=== PATIENT | female | born 1975 | race Caucasian/White ===

== ENCOUNTER → 2016-10-04 | Day surgery (SDC) | payer MEDICARE, MEDICAID ==
[~2016-10-04] VITALS: Ht 154.9 cm; Wt 72.1 kg
[~2016-10-04] MED LIST: CARB20TAXR PO; CIPRODEX OTIC SUSP 7.5ML As Ordered ONE; IBUP600T26 PO; KEPP1000 PO; LAMI200T3 PO; LIDOCAINE 2% INJ 100 MG/5 ML SDV (FOR ANES.) As Ordered ONE; LR 1,000 ML IV SCH; MEDR1VL IM; ONDANSETRON 4MG/2ML VIAL (J2405) As Ordered ONE; PROPOFOL 200 MG/20 ML VIAL As Ordered ONE; VITA100054 PO; [UNRECOGNIZED DRUG - CODE] FT
[2016-10-04 13:44] LABS: CONTROL LINE UCG INT CTR LINE PRESENT
[2016-10-04 16:50] VITALS: BP 140/76
== END | disposition home or self-care (01) ==
LOC: M SDC 11:45
PROVIDERS: ATTEND Otolaryngology
DX: H65.21 Chronic serous otitis media, right ear (principal); H90.11 Conductive hearing loss, unilateral, right ear, with unrestricted hearing on the contralateral side; F79 Unspecified intellectual disabilities; G40.909 Epilepsy, unspecified, not intractable, without status epilepticus; G43.909 Migraine, unspecified, not intractable, without status migrainosus; Z79.899 Other long term (current) drug therapy
CPT/HCPCS: 69436; 84703; J2405

== ENCOUNTER → 2016-10-18 | Outpatient (REF) | payer MEDICARE, MEDICAID ==
[~2016-10-18] MED LIST changes: -CIPRODEX OTIC SUSP 7.5ML As Ordered ONE; -LIDOCAINE 2% INJ 100 MG/5 ML SDV (FOR ANES.) As Ordered ONE; -LR 1,000 ML IV SCH; -ONDANSETRON 4MG/2ML VIAL (J2405) As Ordered ONE; -PROPOFOL 200 MG/20 ML VIAL As Ordered ONE
== END ==
LOC: M LAB REF 13:03
PROVIDERS: ATTEND Physician Assistant Medical
DX: H72.01 Central perforation of tympanic membrane, right ear (principal)

== ENCOUNTER → 2017-03-19 | Outpatient (CLI) | payer MEDICARE, MEDICAID ==
[~2017-03-19] MED LIST changes: +IBUP-1022 PO; -IBUP600T26 PO; -KEPP1000 PO; +KEPP10002 PO; +LAMI1TAB9 PO; -LAMI200T3 PO
[2017-03-19 13:25] LABS: CARBAMAZEPINE (TEGRETOL) LEVEL 8.2 UG/ML (4.0-10.0)
[2017-03-19 13:30] LABS: BASO % 0.5 % (0.0-1.0); EOS # 0.2 K/mm3 (0.0-0.50); EOS % 3.1 % (0.0-3.0); LARGE UNSTAINED CELL # 0.1 K/mm3 (0.0-0.4); LARGE UNSTAINED CELL % 1.8 % (0.0-4.0); LYMPH # 2.4 K/mm3 (1.5-4.5); LYMPH % 33.6 % (24.0-44.0); MEAN CORPUSCULAR HEMOGLOBIN 28.3 pg (27.0-33.0); MEAN CORPUSCULAR HGB CONC 32.7 g/dl (32.0-36.5); MEAN CORPUSCULAR VOLUME 86.5 fl (80.0-96.0); MONO # 0.4 K/mm3 (0.0-0.8); MONO % 5.8 % (0.0-5.0); NEUTROPHILS # 3.8 K/mm3 (1.8-7.7); NEUTROPHILS % 55.1 % (36.0-66.0); PLATELET COUNT, AUTOMATED 321 k/mm3 (150-450); RED CELL DISTRIBUTION WIDTH 12.4 % (11.5-14.5); WHITE BLOOD COUNT 6.8 K/mm3 (4.0-10.0)
== END ==
LOC: M WUC 09:09
PROVIDERS: ATTEND Physician Assistant Medical
DX: Z51.81 Encounter for therapeutic drug level monitoring (principal); Z79.899 Other long term (current) drug therapy; G40.909 Epilepsy, unspecified, not intractable, without status epilepticus

== ENCOUNTER 2017-03-23 14:46 | Emergency (ER) | payer MEDICARE, MEDICAID ==
[2017-03-23 17:28] VITALS: BP 163/82
== END 2017-03-23 17:30 | disposition home or self-care (01) ==
LOC: EDBD 14:46 → M ED 14:46
DX: R56.9 Unspecified convulsions (principal); Z79.899 Other long term (current) drug therapy; Z86.69 Personal history of other diseases of the nervous system and sense organs

== ENCOUNTER → 2017-12-18 | Outpatient (CLI) | payer MEDICARE, MEDICAID | LOC: M WHC 07:51 | DX: Z12.31 Encounter for screening mammogram for malignant neoplasm of breast (principal); Z79.3 Long term (current) use of hormonal contraceptives | CPT/HCPCS: 77067 ==

== ENCOUNTER → 2018-02-11 | Outpatient (CLI) | payer MEDICARE, MEDICAID ==
[2018-02-11 08:56] LABS: HEMATOCRIT 38.8 % (36.0-47.0); HEMOGLOBIN 12.8 g/dl (12.0-15.5); MEAN CORPUSCULAR HEMOGLOBIN 27.1 pg (27.0-33.0); MEAN CORPUSCULAR VOLUME 82.2 fl (80.0-96.0); PLATELET COUNT, AUTOMATED 295 10^3/uL (150-450); RED BLOOD COUNT 4.72 10^6/uL (4.00-5.40); RED CELL DISTRIBUTION WIDTH 12.7 % (11.5-14.5); WHITE BLOOD COUNT 6.4 10^3/uL (4.0-10.0)
[2018-02-11 09:26] LABS: ALBUMIN 3.4 GM/DL (3.2-5.2); ALBUMIN/GLOBULIN RATIO 0.85 (1.00-1.93); ALKALINE PHOSPHATASE 133 U/L (45-117); ALT/SGPT 19 U/L (12-78); ANION GAP 9 MEQ/L (8-16); AST/SGOT 13 U/L (7-37); BILIRUBIN,TOTAL 0.3 MG/DL (0.2-1.0); BLOOD UREA NITROGEN 8 MG/DL (7-18); CALCIUM LEVEL 8.5 MG/DL (8.5-10.1); CARBON DIOXIDE LEVEL 26 MEQ/L (21-32); CHLORIDE LEVEL 107 MEQ/L (98-107); CHOLESTEROL LEVEL 200 MG/DL (<200); CHOLESTEROL RISK RATIO 3.389 (<5); CREATININE FOR GFR 0.87 MG/DL (0.55-1.30); GLOMERULAR FILTRATION RATE > 60.0 (>58); GLUCOSE, FASTING 86 MG/DL (70-100); HDL CHOLESTEROL 59 MG/DL (>40); LDL CHOLESTEROL 115.2 MG/DL (<100); NON-HDL-C 141 MG/DL; SODIUM LEVEL 142 MEQ/L (136-145); TOTAL PROTEIN 7.4 GM/DL (6.4-8.2); TRIGLYCERIDES LEVEL 129 MG/DL (<150)
[2018-02-11 10:16] LABS: TOTAL 25(OH) VITAMIN D 48.6 NG/ML (30.0-100.0)
== END ==
LOC: M WUC 08:22
DX: E78.5 Hyperlipidemia, unspecified (principal)
CPT/HCPCS: 84443

== ENCOUNTER → 2018-04-08 | Outpatient (CLI) | payer MEDICARE, MEDICAID ==
[2018-04-08 09:34] LABS: CARBAMAZEPINE (TEGRETOL) LEVEL 10.4 UG/ML (4.0-10.0)
== END ==
LOC: M WUC 08:04
DX: R56.9 Unspecified convulsions (principal)
CPT/HCPCS: 80156

== ENCOUNTER → 2019-05-18 | Outpatient (CLI) | payer MEDICARE, MEDICAID ==
--- NOTE | 2019-05-18 10:10 | REPMRS ---
Patient History The patient states she had a clinical breast exam in 03/2019. Patient is nulliparous. No known family history of cancer. Taking hormonal contraceptives for 24 years. 3D TOMOSYNTHESIS WAS PERFORMED. [facility] lifetime risk for breast cancer is 10.7%. Digital Woman Screen Mammo: May 18, 2019 - Exam #: [id number] Bilateral CC and MLO view(s) were taken. Technologist: Anette Beltre, Technologist Prior study comparison: December 18, 2017, digital woman screen mammo performed at [facility]. October 18, 2015, digital woman screen mammo performed at [facility] 1,2,3 [place] [facility]. FINDINGS: The breast tissue is heterogeneously dense. This may lower the sensitivity of mammography. There has been no change in the appearance of the mammogram from the prior studies. There is a moderate amount of residual fibroglandular tissue which is fairly symmetric. There is no interval development of dominant mass, areas of architectural distortion, or clustered microcalcification typical of malignancy. Assessment: BI-RADS/ACR category 1 mammogram. Negative Mammogram. Recommendation Routine screening mammogram in 1 year (for women over age 40). This mammogram was interpreted with the aid of an FDA-approved computer-aided dectection system. Electronically Signed By: Luis Alberto Friedman MD 05/18/19 [id number]
== END ==
LOC: M WHC 08:23
PROVIDERS: ATTEND Nurse Practitioner Family
DX: Z12.31 Encounter for screening mammogram for malignant neoplasm of breast (principal)

== ENCOUNTER → 2019-09-22 | Outpatient (CLI) | payer MEDICARE, MEDICAID ==
[2019-09-22 10:23] LABS: BASO # 0.1 10^3/uL (0.0-0.2); BASO % 0.8 % (0.0-1.0); EOS # 0.2 10^3/uL (0.0-0.5); EOS % 2.9 % (0.0-3.0); HEMATOCRIT 41.9 % (36.0-47.0); HEMOGLOBIN 13.4 g/dl (12.0-15.5); LYMPH # 2.4 10^3/uL (1.5-5.0); LYMPH % 36.7 % (24.0-44.0); MEAN CORPUSCULAR HEMOGLOBIN 27.9 pg (27.0-33.0); MEAN CORPUSCULAR VOLUME 87.1 fl (80.0-96.0); MONO # 0.4 10^3/uL (0.0-0.8); MONO % 5.5 % (0.0-5.0); NEUTROPHILS # 3.5 10^3/uL (1.5-8.5); NEUTROPHILS % 53.6 % (36.0-66.0); PLATELET COUNT, AUTOMATED 315 10^3/uL (150-450); RED BLOOD COUNT 4.81 10^6/uL (4.00-5.40); WHITE BLOOD COUNT 6.5 10^3/uL (4.0-10.0)
[2019-09-22 10:36] LABS: CARBAMAZEPINE (TEGRETOL) LEVEL 10.6 UG/ML (4.0-10.0)
[2019-09-24 14:10] LABS: LAMOTRIGINE (LAMICTAL) 6.3 ug/mL (2.0-20.0); LEVETIRACETAM (KEPPRA) 41.5 ug/mL (10.0-40.0)
== END ==
LOC: M WUC 08:22
PROVIDERS: ATTEND Physician Assistant Medical
DX: Z79.899 Other long term (current) drug therapy (principal); G40.909 Epilepsy, unspecified, not intractable, without status epilepticus

== ENCOUNTER → 2020-01-04 | Outpatient (REF) | payer MEDICARE, MEDICAID | LOC: M LAB REF 14:11 | PROVIDERS: ATTEND Physician Assistant Medical | DX: H92.11 Otorrhea, right ear (principal) ==

== ENCOUNTER → 2020-08-02 | Outpatient (CLI) | payer MEDICARE, MEDICAID ==
--- NOTE | 2020-08-02 09:00 | REPVR ---
PROCEDURE INFORMATION: Exam: CT Temporal Bones Without Contrast. Exam date and time: 08/02/2020 8:44 AM Age: 45 years old Clinical indication: Pain; Other: Ear; Additional info: Otorrhea of right ear TECHNIQUE: Imaging protocol: Computed tomography images of the temporal bones without contrast. Radiation optimization: All CT scans at this facility use at least one of these dose optimization techniques: automated exposure control; mA and/or kV adjustment per patient size (includes targeted exams where dose is matched to clinical indication); or iterative reconstruction. COMPARISON: No relevant prior studies available. FINDINGS: There are severe destructive changes of the bone of the right external auditory canal. Soft tissue density occludes the right external auditory canal. Soft tissue density completely fills the right middle ear, aditus ad antrum, and all of the right mastoid air cells. There is a permeative pattern throughout the right temporal bone. Findings are consistent with extensive osteomyelitis. Many of these findings are likely chronic. IMPRESSION: There are severe destructive changes of the bone of the right external auditory canal. Soft tissue density occludes the right external auditory canal. Soft tissue density completely fills the right middle ear, aditus ad antrum, and all of the right mastoid air cells. There is a permeative pattern throughout the right temporal bone. Findings are consistent with extensive osteomyelitis. Many of these findings are likely chronic. Direct comparison to any prior studies is recommended. ENT consultation is recommended. Follow-up postcontrast MRI of the brain is recommended to evaluate for intracranial extension of infection. Electronically signed by: Juliocesar Marie On 08/02/2020 09:01:21 AM
== END ==
LOC: M RAD 08:29
PROVIDERS: ATTEND Physician Assistant Medical
DX: H92.11 Otorrhea, right ear (principal)

== ENCOUNTER → 2020-11-29 | Outpatient (REF) | payer MEDICARE, MEDICAID | LOC: M WUC 09:24 | PROVIDERS: ATTEND Physician Assistant Medical | DX: R56.9 Unspecified convulsions (principal) ==

== ENCOUNTER → 2021-05-29 | Outpatient (CLI) | payer MEDICARE, MEDICAID | LOC: M WUC 08:02 | PROVIDERS: ATTEND Physician Assistant Medical | DX: Z51.81 Encounter for therapeutic drug level monitoring (principal) ==

== ENCOUNTER 2021-09-13 10:41 | Inpatient (IN) | payer MEDICARE, MEDICAID ==
[~2021-09-13] VITALS: Ht 154.9 cm; Wt 99.0 kg
[~2021-09-13 10:41] MED LIST changes: +ATOR1TAB19 PO; +CARB400T4 PO; +MELO15TA28 PO; +OXYC-517 PO; +TRAM50TA2 PO; +VITA100093 PO
[2021-09-13] MEDS ORDERED: oxyCODONE 5MG TAB PO PRN (11:00)
[2021-09-13] MEDS ORDERED: MIRALAX *UNIT DOSE* 17GM PACKET PO PRN (11:00)
[2021-09-13] MEDS ORDERED: ONDANSETRON 4 MG ORAL DISINTEGRATING TAB SL PRN (11:00)
[2021-09-13] MEDS ORDERED: BISACODYL 10 MG SUPP PR PRN (11:00)
[2021-09-13] MEDS ORDERED: ASPI-551 PO (13:49)
[2021-09-13] MEDS ORDERED: SENN-52 PO (13:49)
[2021-09-13] MEDS ORDERED: ACET1TAB55 PO (13:49)
[2021-09-13] MEDS ORDERED: MIRA1POW3 PO (13:49)
[2021-09-13] MEDS ORDERED: HOME MED LIST COMPLETE! XX SCH (15:20)
[2021-09-13 16:01] VITALS: BP 144/77
[2021-09-13] MEDS: ACETAMINOPHEN 500 MG TAB PO SCH ×2 (16:21→21:22)
[2021-09-13] MEDS: METOPROLOL TART 25 MG TABLET PO SCH ×2 (17:19→21:21)
[2021-09-13] MEDS: SUCRALFATE 1 GM TAB PO SCH ×2 (17:19→21:22)
[2021-09-13 20:00] VITALS: BP 131/74
[2021-09-13] MEDS: SENNA 8.6 MG TAB (SENOKOT) PO SCH (21:00)
[2021-09-13] MEDS: DOCUSATE SODIUM 100MG CAPSULE PO SCH (21:00)
[2021-09-13] MEDS: PANTOPRAZOLE 40MG TAB (PROTONIX) PO SCH (21:21)
[2021-09-13] MEDS: ASPIRIN 81MG ENTERIC TABLET PO SCH (21:21)
[2021-09-13] MEDS: levETIRAcetam 250MG TABLET (KEPPRA) PO SCH (21:21)
[2021-09-13] MEDS: lamoTRIgine 100MG TAB PO SCH (21:21)
[2021-09-13] MEDS: carBAMazepine XR 200 MG TAB PO SCH (21:22)
[2021-09-14 05:58] LABS: BASO # 0.1 10^3/uL (0.0-0.2); BASO % 0.7 % (0.0-1.0); EOS # 0.5 10^3/uL (0.0-0.5); EOS % 5.8 % (0.0-3.0); HEMATOCRIT 24.5 % (36.0-47.0); HEMOGLOBIN 7.8 g/dl (12.0-15.5); LYMPH % 35.3 % (24.0-44.0); MEAN CORPUSCULAR HEMOGLOBIN 27.8 pg (27.0-33.0); MEAN CORPUSCULAR HGB CONC 31.8 g/dl (32.0-36.5); MEAN CORPUSCULAR VOLUME 87.2 fl (80.0-96.0); MONO # 0.7 10^3/uL (0.0-0.8); MONO % 8.5 % (2.0-8.0); NEUTROPHILS # 4.1 10^3/uL (1.5-8.5); PLATELET COUNT, AUTOMATED 247 10^3/uL (150-450); RED BLOOD COUNT 2.81 10^6/uL (4.00-5.40); WHITE BLOOD COUNT 8.4 10^3/uL (4.0-10.0)
[2021-09-14 06:00] VITALS: BP 138/76
[2021-09-14] MEDS: METOPROLOL TART 25 MG TABLET PO SCH ×3 (06:24→21:08)
[2021-09-14 06:31] LABS: ALBUMIN 2.6 GM/DL (3.2-5.2); ALT/SGPT 16 U/L (12-78); BILIRUBIN,TOTAL 0.2 MG/DL (0.2-1.0); BLOOD UREA NITROGEN 22 MG/DL (7-18); CALCIUM LEVEL 8.1 MG/DL (8.5-10.1); CARBON DIOXIDE LEVEL 29 MEQ/L (21-32); CHLORIDE LEVEL 108 MEQ/L (98-107); GLOMERULAR FILTRATION RATE > 60.0 (>58); GLUCOSE, FASTING 91 MG/DL (70-100); POTASSIUM SERUM 3.8 MEQ/L (3.5-5.1); SODIUM LEVEL 142 MEQ/L (136-145)
[2021-09-14] MEDS: ASPIRIN 81MG ENTERIC TABLET PO SCH ×2 (08:29→21:08)
[2021-09-14] MEDS: SUCRALFATE 1 GM TAB PO SCH ×4 (08:29→21:08)
[2021-09-14] MEDS: levETIRAcetam 250MG TABLET (KEPPRA) PO SCH ×2 (08:29→21:07)
[2021-09-14] MEDS: FERROUS GLUCONATE 324 MG TAB PO SCH (08:29)
[2021-09-14] MEDS: lamoTRIgine 100MG TAB PO SCH ×2 (08:29→21:08)
[2021-09-14] MEDS: ACETAMINOPHEN 500 MG TAB PO SCH ×3 (08:29→21:07)
[2021-09-14] MEDS: PANTOPRAZOLE 40MG TAB (PROTONIX) PO SCH ×2 (08:29→21:08)
[2021-09-14] MEDS: carBAMazepine XR 200 MG TAB PO SCH ×2 (08:29→21:09)
[2021-09-14] MEDS: VITAMIN D 1,000 INTERNATIONAL UNITS TABLET PO SCH (08:30)
[2021-09-14] MEDS: DOCUSATE SODIUM 100MG CAPSULE PO SCH ×2 (08:30→21:08)
[2021-09-14] MEDS ORDERED: ATORVASTATIN 10 MG TAB PO SCH (09:00)
[2021-09-14 13:31] VITALS: BP 134/72
[2021-09-14 19:35] VITALS: BP 122/65
[2021-09-14] MEDS: SENNA 8.6 MG TAB (SENOKOT) PO SCH (21:08)
[2021-09-14] MEDS: ATORVASTATIN 10 MG TAB PO SCH (21:08)
[2021-09-15 05:46] VITALS: BP 115/61
[2021-09-15] MEDS: METOPROLOL TART 25 MG TABLET PO SCH ×3 (05:54→21:14)
[2021-09-15] MEDS: PANTOPRAZOLE 40MG TAB (PROTONIX) PO SCH ×2 (08:13→21:14)
[2021-09-15] MEDS: levETIRAcetam 250MG TABLET (KEPPRA) PO SCH ×2 (08:13→21:13)
[2021-09-15] MEDS: DOCUSATE SODIUM 100MG CAPSULE PO SCH ×2 (08:13→21:13)
[2021-09-15] MEDS: FERROUS GLUCONATE 324 MG TAB PO SCH (08:13)
[2021-09-15] MEDS: VITAMIN D 1,000 INTERNATIONAL UNITS TABLET PO SCH (08:13)
[2021-09-15] MEDS: lamoTRIgine 100MG TAB PO SCH ×2 (08:14→21:13)
[2021-09-15] MEDS: carBAMazepine XR 200 MG TAB PO SCH ×2 (08:14→21:13)
[2021-09-15] MEDS: ASPIRIN 81MG ENTERIC TABLET PO SCH ×2 (08:14→21:14)
[2021-09-15] MEDS: SUCRALFATE 1 GM TAB PO SCH ×4 (08:14→21:14)
[2021-09-15 08:15] LABS: BASO # 0.1 10^3/uL (0.0-0.2); BASO % 0.6 % (0.0-1.0); EOS # 0.5 10^3/uL (0.0-0.5); EOS % 5.9 % (0.0-3.0); HEMATOCRIT 25.9 % (36.0-47.0); HEMOGLOBIN 8.3 g/dl (12.0-15.5); LYMPH # 2.6 10^3/uL (1.5-5.0); LYMPH % 31.8 % (24.0-44.0); MEAN CORPUSCULAR HEMOGLOBIN 27.5 pg (27.0-33.0); MEAN CORPUSCULAR VOLUME 85.8 fl (80.0-96.0); MONO # 0.6 10^3/uL (0.0-0.8); MONO % 7.3 % (2.0-8.0); NEUTROPHILS # 4.4 10^3/uL (1.5-8.5); NEUTROPHILS % 53.4 % (36.0-66.0); PLATELET COUNT, AUTOMATED 297 10^3/uL (150-450); RED BLOOD COUNT 3.02 10^6/uL (4.00-5.40); WHITE BLOOD COUNT 8.3 10^3/uL (4.0-10.0)
[2021-09-15] MEDS: ACETAMINOPHEN 500 MG TAB PO SCH ×3 (08:15→21:14)
[2021-09-15 14:00] VITALS: BP 142/73
[2021-09-15 20:21] VITALS: BP 130/64
[2021-09-15] MEDS: SENNA 8.6 MG TAB (SENOKOT) PO SCH (21:14)
[2021-09-15] MEDS: ATORVASTATIN 10 MG TAB PO SCH (21:14)
[2021-09-16 06:00] VITALS: BP 130/72
[2021-09-16] MEDS: METOPROLOL TART 25 MG TABLET PO SCH ×3 (06:04→21:04)
[2021-09-16] MEDS: levETIRAcetam 250MG TABLET (KEPPRA) PO SCH ×2 (06:05→21:04)
[2021-09-16] MEDS: lamoTRIgine 100MG TAB PO SCH ×2 (06:06→21:04)
[2021-09-16] MEDS: carBAMazepine XR 200 MG TAB PO SCH ×2 (06:06→21:05)
[2021-09-16] MEDS: VITAMIN D 1,000 INTERNATIONAL UNITS TABLET PO SCH (09:11)
[2021-09-16] MEDS: ASPIRIN 81MG ENTERIC TABLET PO SCH ×2 (09:11→21:04)
[2021-09-16] MEDS: FERROUS GLUCONATE 324 MG TAB PO SCH (09:11)
[2021-09-16] MEDS: SUCRALFATE 1 GM TAB PO SCH ×4 (09:11→21:04)
[2021-09-16] MEDS: PANTOPRAZOLE 40MG TAB (PROTONIX) PO SCH ×2 (09:11→21:04)
[2021-09-16] MEDS: DOCUSATE SODIUM 100MG CAPSULE PO SCH ×2 (09:11→21:00)
[2021-09-16] MEDS: ACETAMINOPHEN 500 MG TAB PO SCH ×3 (09:12→21:05)
[2021-09-16 14:00] VITALS: BP 129/65
[2021-09-16 20:00] VITALS: BP 126/65
[2021-09-16] MEDS: SENNA 8.6 MG TAB (SENOKOT) PO SCH (21:00)
[2021-09-16] MEDS: ATORVASTATIN 10 MG TAB PO SCH (21:04)
[2021-09-17] MEDS: METOPROLOL TART 25 MG TABLET PO SCH ×3 (05:27→20:02)
[2021-09-17 06:00] VITALS: BP 131/72
[2021-09-17] MEDS: carBAMazepine XR 200 MG TAB PO SCH ×2 (08:17→20:27)
[2021-09-17] MEDS: ACETAMINOPHEN 500 MG TAB PO SCH ×3 (08:17→20:27)
[2021-09-17] MEDS: SUCRALFATE 1 GM TAB PO SCH ×4 (08:17→20:27)
[2021-09-17] MEDS: FERROUS GLUCONATE 324 MG TAB PO SCH (08:17)
[2021-09-17] MEDS: DOCUSATE SODIUM 100MG CAPSULE PO SCH ×2 (08:17→20:01)
[2021-09-17] MEDS: ASPIRIN 81MG ENTERIC TABLET PO SCH ×2 (08:17→20:27)
[2021-09-17] MEDS: VITAMIN D 1,000 INTERNATIONAL UNITS TABLET PO SCH (08:17)
[2021-09-17] MEDS: lamoTRIgine 100MG TAB PO SCH ×2 (08:17→20:27)
[2021-09-17] MEDS: PANTOPRAZOLE 40MG TAB (PROTONIX) PO SCH ×2 (08:17→20:27)
[2021-09-17] MEDS: levETIRAcetam 250MG TABLET (KEPPRA) PO SCH ×2 (08:17→20:27)
[2021-09-17 14:00] VITALS: BP 111/73
[2021-09-17 19:44] VITALS: BP 106/71
[2021-09-17] MEDS: SENNA 8.6 MG TAB (SENOKOT) PO SCH (20:01)
[2021-09-17] MEDS: ATORVASTATIN 10 MG TAB PO SCH (20:27)
[2021-09-18 06:03] VITALS: BP 131/78
[2021-09-18 06:25] LABS: BASO # 0.1 10^3/uL (0.0-0.2); BASO % 0.7 % (0.0-1.0); EOS # 0.3 10^3/uL (0.0-0.5); EOS % 3.6 % (0.0-3.0); HEMATOCRIT 25.6 % (36.0-47.0); HEMOGLOBIN 8.2 g/dl (12.0-15.5); LYMPH # 2.8 10^3/uL (1.5-5.0); LYMPH % 30.7 % (24.0-44.0); MEAN CORPUSCULAR VOLUME 87.4 fl (80.0-96.0); MONO # 0.7 10^3/uL (0.0-0.8); MONO % 7.5 % (2.0-8.0); NEUTROPHILS # 5.1 10^3/uL (1.5-8.5); NEUTROPHILS % 56.2 % (36.0-66.0); PLATELET COUNT, AUTOMATED 339 10^3/uL (150-450); RED BLOOD COUNT 2.93 10^6/uL (4.00-5.40)
[2021-09-18] MEDS: lamoTRIgine 100MG TAB PO SCH ×2 (06:43→21:01)
[2021-09-18] MEDS: METOPROLOL TART 25 MG TABLET PO SCH ×3 (06:43→21:01)
[2021-09-18] MEDS: levETIRAcetam 250MG TABLET (KEPPRA) PO SCH ×2 (06:44→21:00)
[2021-09-18] MEDS: carBAMazepine XR 200 MG TAB PO SCH ×2 (06:44→21:01)
[2021-09-18] MEDS: SUCRALFATE 1 GM TAB PO SCH ×4 (06:44→21:00)
[2021-09-18 06:49] LABS: BLOOD UREA NITROGEN 17 MG/DL (7-18); CARBON DIOXIDE LEVEL 25 MEQ/L (21-32); CHLORIDE LEVEL 110 MEQ/L (98-107); CREATININE FOR GFR 0.64 MG/DL (0.55-1.30); GLOMERULAR FILTRATION RATE > 60.0 (>58); GLUCOSE, FASTING 97 MG/DL (70-100); POTASSIUM SERUM 3.7 MEQ/L (3.5-5.1); SODIUM LEVEL 141 MEQ/L (136-145)
[2021-09-18] MEDS: DOCUSATE SODIUM 100MG CAPSULE PO SCH ×2 (09:00→21:00)
[2021-09-18] MEDS: FERROUS GLUCONATE 324 MG TAB PO SCH (09:08)
[2021-09-18] MEDS: PANTOPRAZOLE 40MG TAB (PROTONIX) PO SCH ×2 (09:08→21:00)
[2021-09-18] MEDS: ASPIRIN 81MG ENTERIC TABLET PO SCH ×2 (09:09→21:01)
[2021-09-18] MEDS: VITAMIN D 1,000 INTERNATIONAL UNITS TABLET PO SCH (09:09)
[2021-09-18] MEDS: ACETAMINOPHEN 500 MG TAB PO SCH ×3 (09:09→21:00)
[2021-09-18 14:00] VITALS: BP 127/64
[2021-09-18 19:20] VITALS: BP 130/71
[2021-09-18] MEDS: ATORVASTATIN 10 MG TAB PO SCH (21:00)
[2021-09-18] MEDS: SENNA 8.6 MG TAB (SENOKOT) PO SCH (21:01)
[2021-09-19 05:33] VITALS: BP 111/72
[2021-09-19] MEDS: METOPROLOL TART 25 MG TABLET PO SCH ×3 (06:04→21:12)
[2021-09-19] MEDS: levETIRAcetam 250MG TABLET (KEPPRA) PO SCH ×2 (06:05→21:11)
[2021-09-19] MEDS: carBAMazepine XR 200 MG TAB PO SCH ×2 (06:06→21:12)
[2021-09-19] MEDS: lamoTRIgine 100MG TAB PO SCH ×2 (06:06→21:11)
[2021-09-19] MEDS: SUCRALFATE 1 GM TAB PO SCH ×4 (07:30→21:11)
[2021-09-19] MEDS: FERROUS GLUCONATE 324 MG TAB PO SCH (09:36)
[2021-09-19] MEDS: DOCUSATE SODIUM 100MG CAPSULE PO SCH ×2 (09:37→21:11)
[2021-09-19] MEDS: VITAMIN D 1,000 INTERNATIONAL UNITS TABLET PO SCH (09:37)
[2021-09-19] MEDS: ACETAMINOPHEN 500 MG TAB PO SCH ×3 (09:37→21:11)
[2021-09-19] MEDS: ASPIRIN 81MG ENTERIC TABLET PO SCH ×2 (09:37→21:11)
[2021-09-19] MEDS: PANTOPRAZOLE 40MG TAB (PROTONIX) PO SCH ×2 (09:37→21:12)
[2021-09-19 14:07] VITALS: BP 126/73
[2021-09-19 20:00] VITALS: BP 122/68
[2021-09-19] MEDS: SENNA 8.6 MG TAB (SENOKOT) PO SCH (21:00)
[2021-09-19] MEDS: ATORVASTATIN 10 MG TAB PO SCH (21:11)
[2021-09-20 06:00] VITALS: BP 131/67
[2021-09-20] MEDS: levETIRAcetam 250MG TABLET (KEPPRA) PO SCH ×2 (06:17→21:23)
[2021-09-20] MEDS: lamoTRIgine 100MG TAB PO SCH ×2 (06:18→21:25)
[2021-09-20] MEDS: METOPROLOL TART 25 MG TABLET PO SCH ×3 (06:18→21:24)
[2021-09-20] MEDS: carBAMazepine XR 200 MG TAB PO SCH ×2 (06:20→21:21)
[2021-09-20] MEDS: SUCRALFATE 1 GM TAB PO SCH ×4 (07:30→21:25)
[2021-09-20] MEDS: DOCUSATE SODIUM 100MG CAPSULE PO SCH ×2 (09:00→21:22)
[2021-09-20] MEDS: PANTOPRAZOLE 40MG TAB (PROTONIX) PO SCH ×2 (09:09→21:25)
[2021-09-20] MEDS: FERROUS GLUCONATE 324 MG TAB PO SCH (09:09)
[2021-09-20] MEDS: ASPIRIN 81MG ENTERIC TABLET PO SCH ×2 (09:09→21:24)
[2021-09-20] MEDS: VITAMIN D 1,000 INTERNATIONAL UNITS TABLET PO SCH (09:09)
[2021-09-20] MEDS: ACETAMINOPHEN 500 MG TAB PO SCH ×3 (09:10→21:22)
[2021-09-20] MEDS: FUROSEMIDE 20 MG TAB PO SCH (12:31)
[2021-09-20 14:09] VITALS: BP 126/68
[2021-09-20 20:00] VITALS: BP 118/63
[2021-09-20] MEDS: ATORVASTATIN 10 MG TAB PO SCH (21:24)
[2021-09-20] MEDS: SENNA 8.6 MG TAB (SENOKOT) PO SCH (21:25)
[2021-09-21] MEDS: levETIRAcetam 250MG TABLET (KEPPRA) PO SCH ×2 (05:50→20:59)
[2021-09-21] MEDS: carBAMazepine XR 200 MG TAB PO SCH ×2 (05:50→20:59)
[2021-09-21] MEDS: METOPROLOL TART 25 MG TABLET PO SCH ×3 (05:50→21:01)
[2021-09-21] MEDS: lamoTRIgine 100MG TAB PO SCH ×2 (05:50→20:59)
[2021-09-21 06:00] VITALS: BP 137/70
[2021-09-21] MEDS: ACETAMINOPHEN 500 MG TAB PO SCH ×3 (09:00→21:00)
[2021-09-21] MEDS: DOCUSATE SODIUM 100MG CAPSULE PO SCH ×2 (09:00→21:00)
[2021-09-21] MEDS: VITAMIN D 1,000 INTERNATIONAL UNITS TABLET PO SCH (10:12)
[2021-09-21] MEDS: FUROSEMIDE 20 MG TAB PO SCH (10:12)
[2021-09-21] MEDS: SUCRALFATE 1 GM TAB PO SCH ×4 (10:13→20:58)
[2021-09-21] MEDS: PANTOPRAZOLE 40MG TAB (PROTONIX) PO SCH ×2 (10:13→20:57)
[2021-09-21] MEDS: FERROUS GLUCONATE 324 MG TAB PO SCH (10:14)
[2021-09-21] MEDS: ASPIRIN 81MG ENTERIC TABLET PO SCH ×2 (10:14→21:00)
[2021-09-21] MEDS ORDERED: FURO20TA2 PO (10:20)
[2021-09-21] MEDS ORDERED: FERR32TA PO (10:20)
[2021-09-21] MEDS ORDERED: METO1TAB87 PO (10:20)
[2021-09-21] MEDS ORDERED: PANT40TA29 PO (10:20)
[2021-09-21] MEDS ORDERED: ATOR1TAB19 PO (10:20)
[2021-09-21] MEDS ORDERED: ASPI-551 PO (10:20)
[2021-09-21 14:00] VITALS: BP 133/76
[2021-09-21 20:00] VITALS: BP 126/63
[2021-09-21] MEDS: ATORVASTATIN 10 MG TAB PO SCH (20:59)
[2021-09-21] MEDS: SENNA 8.6 MG TAB (SENOKOT) PO SCH (21:00)
[2021-09-22 06:00] VITALS: BP 128/63
[2021-09-22 06:15] VITALS: BP 128/63
[2021-09-22] MEDS: METOPROLOL TART 25 MG TABLET PO SCH (06:15)
[2021-09-22] MEDS: SUCRALFATE 1 GM TAB PO SCH ×2 (07:30→12:20)
[2021-09-22 07:45] VITALS: BP 151/87
[2021-09-22 08:25] VITALS: BP 110/66
[2021-09-22] MEDS: FERROUS GLUCONATE 324 MG TAB PO SCH (09:56)
[2021-09-22] MEDS: levETIRAcetam 250MG TABLET (KEPPRA) PO SCH (09:56)
[2021-09-22] MEDS: PANTOPRAZOLE 40MG TAB (PROTONIX) PO SCH (09:56)
[2021-09-22] MEDS: carBAMazepine XR 200 MG TAB PO SCH (09:56)
[2021-09-22] MEDS: DOCUSATE SODIUM 100MG CAPSULE PO SCH (09:56)
[2021-09-22] MEDS: VITAMIN D 1,000 INTERNATIONAL UNITS TABLET PO SCH (09:56)
[2021-09-22] MEDS: lamoTRIgine 100MG TAB PO SCH (09:56)
[2021-09-22] MEDS: ACETAMINOPHEN 500 MG TAB PO SCH (09:56)
[2021-09-22] MEDS: ASPIRIN 81MG ENTERIC TABLET PO SCH (09:56)
[2021-09-22] MEDS: FUROSEMIDE 20 MG TAB PO SCH (09:56)
== END 2021-09-22 13:30 | disposition home or self-care (01) | DRG 560 ==
LOC: M PM&R 14:55
PROVIDERS: ADMIT Physical Medicine & Rehabilitation; ATTEND Physical Medicine & Rehabilitation
DX: S82.142D Displaced bicondylar fracture of left tibia, subsequent encounter for closed fracture with routine healing (principal); D62 Acute posthemorrhagic anemia; G40.909 Epilepsy, unspecified, not intractable, without status epilepticus; E78.5 Hyperlipidemia, unspecified; H91.91 Unspecified hearing loss, right ear; Z74.09 Other reduced mobility; Z74.1 Need for assistance with personal care; R00.0 Tachycardia, unspecified; R03.0 Elevated blood-pressure reading, without diagnosis of hypertension; Z79.82 Long term (current) use of aspirin; Z79.899 Other long term (current) drug therapy; Z79.1 Long term (current) use of non-steroidal anti-inflammatories (NSAID)

== ENCOUNTER → 2021-09-25 | Outpatient (CLI) | payer MEDICARE, MEDICAID ==
[~2021-09-25] MED LIST changes: +ACET1TAB55 PO; +ASPI-551 PO; +FERR32TA PO; +FURO20TA2 PO; +METO1TAB87 PO; +MIRA1POW3 PO; +PANT40TA29 PO; +SENN-52 PO
== END ==
LOC: M SOG 14:15
PROVIDERS: ATTEND Orthopaedic Surgery Adult Reconstructive Orthopaedic Surgery
DX: Z48.89 Encounter for other specified surgical aftercare (principal)

== ENCOUNTER → 2021-10-23 | Outpatient (CLI) | payer MEDICARE, MEDICAID | LOC: M SOG 11:27 | PROVIDERS: ATTEND Orthopaedic Surgery Adult Reconstructive Orthopaedic Surgery | DX: S82.122D Displaced fracture of lateral condyle of left tibia, subsequent encounter for closed fracture with routine healing (principal); W18.30XD Fall on same level, unspecified, subsequent encounter ==

== ENCOUNTER → 2022-06-06 | Outpatient (CLI) | payer MEDICARE, MEDICAID | LOC: M SOG 08:02 | PROVIDERS: ATTEND Orthopaedic Surgery Adult Reconstructive Orthopaedic Surgery | DX: S82.122D Displaced fracture of lateral condyle of left tibia, subsequent encounter for closed fracture with routine healing (principal); W18.30XD Fall on same level, unspecified, subsequent encounter ==

== ENCOUNTER → 2023-01-28 | Outpatient (CLI) | payer MEDICARE, MEDICAID | LOC: M PLAIMG 08:57 | PROVIDERS: ATTEND Otolaryngology | DX: H90.11 Conductive hearing loss, unilateral, right ear, with unrestricted hearing on the contralateral side (principal); H61.301 Acquired stenosis of right external ear canal, unspecified ==

== ENCOUNTER → 2023-04-09 | Outpatient (CLI) | payer MEDICARE, MEDICAID ==
[2023-04-09 09:52] LABS: HEMATOCRIT 37.5 % (36.0-47.0); MEAN CORPUSCULAR HEMOGLOBIN 28.2 pg (27.0-33.0); PLATELET COUNT, AUTOMATED 286 10^3/uL (150-450); RED BLOOD COUNT 4.26 10^6/uL (4.00-5.40); WHITE BLOOD COUNT 5.9 10^3/uL (4.0-10.0)
[2023-04-09 10:33] LABS: ALBUMIN 3.5 G/DL (3.2-5.2); ALKALINE PHOSPHATASE 119 U/L (46-116); ALT/SGPT 15 U/L (7.0-40); AST/SGOT < 8 U/L (<34); BILIRUBIN,TOTAL 0.4 MG/DL (0.3-1.2); BLOOD UREA NITROGEN 19 MG/DL (9-23); CALCIUM LEVEL 8.8 MG/DL (8.5-10.1); CARBON DIOXIDE LEVEL 26 MMOL/L (20-31); CHLORIDE LEVEL 107 MMOL/L (98-107); CHOLESTEROL LEVEL 160 MG/DL (<200); CHOLESTEROL RISK RATIO 2.27 (<5); CREATININE FOR GFR 0.85 MG/DL (0.55-1.30); GLOMERULAR FILTRATION RATE > 60.0 (>58); GLUCOSE, FASTING 92 MG/DL (60-100); HDL CHOLESTEROL 70.2 MG/DL (>40); LDL CHOLESTEROL 75.6 MG/DL (<100); NON-HDL-C 89.8 MG/DL; POTASSIUM SERUM 4.3 MMOL/L (3.5-5.1); SODIUM LEVEL 141 MMOL/L (136-145); TOTAL PROTEIN 6.9 G/DL (5.7-8.2); TRIGLYCERIDES LEVEL 71 MG/DL (<150)
[2023-04-09 10:43] LABS: THYROID STIMULATING HORMONE 1.378 uIU/ML (0.55-4.78)
== END ==
LOC: M WUC 08:08
PROVIDERS: ATTEND Physician Assistant
DX: G40.309 Generalized idiopathic epilepsy and epileptic syndromes, not intractable, without status epilepticus (principal); E78.5 Hyperlipidemia, unspecified

== ENCOUNTER → 2023-09-24 | Outpatient (CLI) | payer MEDICARE, MEDICAID ==
[~2023-09-24] MED LIST changes: -MIRA1POW3 PO; +MIRA33506 PO
[2023-09-24 10:13] LABS: HEMATOCRIT 39.9 % (36.0-47.0); HEMOGLOBIN 12.6 g/dl (12.0-15.5); MEAN CORPUSCULAR HEMOGLOBIN 27.6 pg (27.0-33.0); MEAN CORPUSCULAR HGB CONC 31.6 g/dl (32.0-36.5); MEAN CORPUSCULAR VOLUME 87.3 fl (80.0-96.0); PLATELET COUNT, AUTOMATED 310 10^3/uL (150-450); RED BLOOD COUNT 4.57 10^6/uL (4.00-5.40); WHITE BLOOD COUNT 6.8 10^3/uL (4.0-10.0)
[2023-09-24 10:56] LABS: ALBUMIN 3.8 G/DL (3.2-5.2); ALKALINE PHOSPHATASE 127 U/L (46-116); ALT/SGPT 12 U/L (7.0-40); AST/SGOT 11 U/L (<34); BILIRUBIN,TOTAL 0.5 MG/DL (0.3-1.2); BLOOD UREA NITROGEN 18 MG/DL (9-23); CALCIUM LEVEL 8.6 MG/DL (8.5-10.1); CARBON DIOXIDE LEVEL 26 MMOL/L (20-31); CHLORIDE LEVEL 106 MMOL/L (98-107); CHOLESTEROL LEVEL 160 MG/DL (<200); CHOLESTEROL RISK RATIO 2.33 (<5); CREATININE FOR GFR 0.86 MG/DL (0.55-1.30); GLOMERULAR FILTRATION RATE > 60.0 (>58); GLUCOSE, FASTING 91 MG/DL (60-100); HDL CHOLESTEROL 68.5 MG/DL (>40); LDL CHOLESTEROL 75.1 MG/DL (<100); NON-HDL-C 91.5 MG/DL; SODIUM LEVEL 139 MMOL/L (136-145); TOTAL PROTEIN 7.2 G/DL (5.7-8.2); TRIGLYCERIDES LEVEL 82 MG/DL (<150)
[2023-09-24 10:57] LABS: THYROID STIMULATING HORMONE 1.631 uIU/ML (0.55-4.78)
== END ==
LOC: M WUC 08:02
PROVIDERS: ATTEND Physician Assistant
DX: E78.5 Hyperlipidemia, unspecified (principal); G40.309 Generalized idiopathic epilepsy and epileptic syndromes, not intractable, without status epilepticus; E55.9 Vitamin D deficiency, unspecified

== ENCOUNTER → 2024-11-09 | Outpatient (CLI) | payer MEDICARE, MEDICAID ==
[~2024-11-09] MED LIST changes: +CARB400T11 PO; -CARB400T4 PO
[2024-11-09 14:24] LABS: HEMATOCRIT 41.7 % (36.0-47.0); HEMOGLOBIN 13.1 g/dl (12.0-15.5); MEAN CORPUSCULAR HEMOGLOBIN 27.9 pg (27.0-33.0); MEAN CORPUSCULAR HGB CONC 31.4 g/dl (32.0-36.5); MEAN CORPUSCULAR VOLUME 88.7 fl (80.0-96.0); PLATELET COUNT, AUTOMATED 287 10^3/uL (150-450)
[2024-11-09 15:12] LABS: ALBUMIN 3.8 G/DL (3.2-5.2); BILIRUBIN,TOTAL 0.3 MG/DL (0.3-1.2); CALCIUM LEVEL 9.4 MG/DL (8.5-10.1); CHOLESTEROL RISK RATIO 2.26 (<5); CREATININE FOR GFR 0.86 MG/DL (0.55-1.30); GLOMERULAR FILTRATION RATE 82.3 (>51); HDL CHOLESTEROL 81.6 MG/DL (>40); LDL CHOLESTEROL 77.6 MG/DL (<100); NON-HDL-C 103.4 MG/DL; POTASSIUM SERUM 4.6 MMOL/L (3.5-5.1); TOTAL PROTEIN 7.4 G/DL (5.7-8.2)
[2024-11-09 15:13] LABS: THYROID STIMULATING HORMONE 0.964 uIU/ML (0.55-4.78)
[2024-11-09 15:14] LABS: TOTAL 25(OH) VITAMIN D 41.2 NG/ML (20.0-100.0)
[2024-11-10 07:17] LABS: WHITE BLOOD COUNT 6.4 10^3/uL (4.0-10.0)
== END ==
LOC: M WUC 08:13
PROVIDERS: ATTEND Physician Assistant
DX: E78.5 Hyperlipidemia, unspecified (principal); E55.9 Vitamin D deficiency, unspecified; G40.309 Generalized idiopathic epilepsy and epileptic syndromes, not intractable, without status epilepticus

== ENCOUNTER → 2024-11-09 | Outpatient (CLI) | payer MEDICARE, MEDICAID ==
[2024-11-09 14:24] LABS: ALBUMIN 4.1 G/DL (3.2-5.2); BILIRUBIN,TOTAL 0.3 MG/DL (0.3-1.2); CALCIUM LEVEL 9.1 MG/DL (8.5-10.1); CREATININE FOR GFR 0.85 MG/DL (0.55-1.30); FOLATE 11.4 NG/ML (>5.4); GLOMERULAR FILTRATION RATE 83.4 (>51); POTASSIUM SERUM 4.7 MMOL/L (3.5-5.1); TOTAL PROTEIN 7.3 G/DL (5.7-8.2)
[2024-11-09 14:40] LABS: BASO # 0.1 10^3/uL (0.0-0.2); BASO % 0.9 % (0.0-1.0); EOS # 0.2 10^3/uL (0.0-0.5); EOS % 3.4 % (0.0-3.0); HEMATOCRIT 42.2 % (36.0-47.0); HEMOGLOBIN 13.2 g/dl (12.0-15.5); LYMPH # 2.4 10^3/uL (1.5-5.0); MEAN CORPUSCULAR HEMOGLOBIN 28.1 pg (27.0-33.0); MEAN CORPUSCULAR HGB CONC 31.3 g/dl (32.0-36.5); MEAN CORPUSCULAR VOLUME 89.8 fl (80.0-96.0); MONO # 0.4 10^3/uL (0.0-0.8); MONO % 6.3 % (2.0-8.0); NEUTROPHILS # 3.7 10^3/uL (1.5-8.5); WHITE BLOOD COUNT 6.8 10^3/uL (4.0-10.0)
[2024-11-09 15:40] LABS: PLATELET COUNT, AUTOMATED 321 10^3/uL (150-450)
[2024-11-10 15:06] LABS: CARBAMAZEPINE (TEGRETOL) SO 8.5 mg/L (4.0-12.0)
[2024-11-12 02:04] LABS: LEVETIRACETAM (KEPPRA) 39.1 mcg/mL (6.0-46.0)
[2024-11-12 19:06] LABS: LAMOTRIGINE (LAMICTAL) 7.9 mcg/mL (2.5-15.0)
== END ==
LOC: M WUC 08:11
PROVIDERS: ATTEND Psychiatry & Neurology Neurology
DX: R56.9 Unspecified convulsions (principal); E07.9 Disorder of thyroid, unspecified; E78.00 Pure hypercholesterolemia, unspecified; E78.5 Hyperlipidemia, unspecified; E55.9 Vitamin D deficiency, unspecified; G40.309 Generalized idiopathic epilepsy and epileptic syndromes, not intractable, without status epilepticus